=== PATIENT | female | born 1955 | race Caucasian/White ===

== ENCOUNTER 2021-07-23 07:52 | Inpatient (IN) ==
[2021-07-23] MEDS ORDERED: METOPROLOL TARTRATE 1 MG/ML VIAL IV STA ×2 (08:32→09:29)
[2021-07-23 08:42] LABS: Basophils # (auto) 0.01 K/uL (0-0.2); Basophils % (auto) 0.2 %; Eosinophils # (auto) 0.17 K/uL (0-0.5); Hematocrit (blood only) 43.9 % (37-47); Hemoglobin 15.2 g/dL (12.0-16.0); Immature Granulocytes # (auto) 0.01 K/uL (0.00-0.02); Immature Granulocytes % (auto) 0.2 %; Lymphocytes % (auto) 26.1 %; Mean Corpuscular Hemoglobin 28.7 pg (25-34); Mean Corpuscular Hgb Conc 34.6 g/dL (32-36); Mean Corpuscular Volume 82.8 fL (80-100); Mean Platelet Volume 10.8 fL (7.4-10.4); Monocytes # (auto) 0.37 K/uL (0.11-0.59); Monocytes % (auto) 6.4 %; Neutrophils # (auto) 3.69 K/uL (1.4-6.5); Neutrophils % (auto) 64.1 %; Platelet Count 270 K/uL (130-400); RDW Coefficient of Variation 13.1 % (11.5-14.5); RDW Standard Deviation 39.3 fL (36.4-46.3); White Blood Count 5.75 K/uL (4.8-10.8)
--- NOTE | 2021-07-23 08:42 | XRay Report ---
XR chest 1V portable CLINICAL HISTORY: Chest Pain COMPARISON STUDY: Chest radiograph December 16, 2018. FINDINGS: Lung volumes are normal. Lungs are clear. There is no pneumothorax or pleural effusion. Car diac size is normal. Mediastinal contours are normal. There is no evidence for pulmonary edema. Patie nt is mildly rotated. IMPRESSION: No acute cardiopulmonary findings. ACT 112: Negative or not required by law. Electronically signed by: Tani Miner M.D. 07/23/2021 8:41 AM
--- NOTE | 2021-07-23 08:45 | Emergency Department Note ---
History of Present Illness General Chief complaint: Anxiety Time Seen by Provider: 07/23/21 08:09 Source: patient and RN notes reviewed Mode of arrival: EMS Limitations: no limitations History of Present Illness Provider complaint: Dizziness, tachycardia 66 yo F Hx AFib on Eliquis therapy, HTN, anxiety on Zoloft presents for 2 hours of dizziness, tachycardia, bilateral arm tingling, and presyncopal sensation with noted HR 100-130 in ER. She reports that since 2018 she has had some heart palpitations, and around April of this year she was started on Eliquis for AFib after having Zio monitoring via Cardiology. She admits to increased stress in her life (her sister has stage 4 pancreatic cancer, and her housemate was diagnosed with COVID 19 in mid-June), and was started on Zoloft in March. Two days ago she states that she had an episode while seated where she started to feel lightheaded and passed out, hitting her head and arm off of the floor. She does not endorse any facial weakness or numbness, limb weakness, dysarthria, dysphagia. On review of [facility] notes, Zio monitor showed AFib especially during sleeping hours, with minimum HR of 48 bpm, 1 run of VTach (7 beats, max rate 135), and several runs of SVT with maximum HR of 279. Lexiscan performed on 06/12/21 showed no evidence of ischemia with EF >65%. Home Medications Medication Instructions Recorded Confirmed Type conjugated estrogens 0.625 mg/gram 0.25 applic VAGINAL WK 12/16/18 07/23/21 History vaginal cream (Premarin) loratadine 10 mg tablet (Claritin) 10 mg PO DAILY 12/16/18 07/23/21 History melatonin 5 mg chewable tablet 5 mg PO HS PRN 12/16/18 07/23/21 History apixaban 5 mg tablet (Eliquis) 5 mg PO BID 07/23/21 07/23/21 History sertraline 25 mg tablet 25 mg PO DAILY 07/23/21 07/23/21 History sotalol 80 mg tablet 40 mg PO BID 30 Days #30 tab 07/25/21 Rx Allergies Allergy/AdvReac Type Severity Reaction Status Date / Time No Known Allergies Allergy Verified 07/23/21 08:06 Past Med/Surg History Medical History (Updated 07/26/21 @ 08:36 by Toya Castaneda MD) Anxiety Atrial fibrillation Hyperlipidemia Postmenopausal atrophic vaginitis Seasonal allergies Surgical History H/O wisdom tooth extraction History of appendectomy Family History Father Myocardial infarction Fatal at age 62 Social History Smoking Status: Never smoker Hx Alcohol Use: Yes Alcohol type: wine Hx Substance Use: No Preferred Language: Zambian 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 Beliefs That Will Affect Care: None marital status: Current Living Situation: Spouse current occupational status: employed Feels Safe at Home: Yes and No Is there a partner from a previous relationship who is making you feel unsafe now?: No Assistive Devices: None Review of Systems All systems reviewed & are unremarkable except as noted in HPI & below Constitutional: no fever, no chills and no malaise Respiratory: no cough and no dyspnea Cardiovascular: + palpitations and + lightheadedness; no chest pain and no edema Gastrointestinal: no abdominal pain, no constipation and no diarrhea/loose stools Genitourinary (Female): no dysuria and no hematuria Neurologic: + paresthesia (bilateral arms) Psychiatric: + anxiety Physical Exam Vital Signs Vital Signs - 24 hr 07/23/21 08:01 07/23/21 08:06 07/23/21 08:30 Temperature Source Oral Pulse Rate 108 H 100 H 112 H Pulse Rate [Finger] Pulse Rate from SpO2 Sensor 90 113 H Pulse Rhythm Regular Pulse Strength Normal Respiratory Rate 16 22 29 H Respiratory Effort / Characteristics Non-Labored Spontaneous Respiratory Depth Normal Respiratory Pattern Regular Blood Pressure 154/100 H 154/100 H 136/102 H Blood Pressure [Left Arm] Blood Pressure Mean 118 118 113 Blood Pressure Mean [Left Arm] Blood Pressure Position Sitting Pulse Oximetry 99 100 97 Oxygen Delivery Method Room Air Room Air Room Air Sepsis Recent Fever Within 48 Hours No Sepsis New/Unexplained Change in Mental Status No Sepsis Action Taken by Nursing No Action Required 07/23/21 08:44 07/23/21 09:00 07/23/21 09:16 Temperature Source Pulse Rate 113 H 97 H Pulse Rate [Finger] Pulse Rate from SpO2 Sensor 99 H Pulse Rhythm Pulse Strength Respiratory Rate 30 H Respiratory Effort / Characteristics Respiratory Depth Respiratory Pattern Blood Pressure 136/102 H 144/90 H 119/81 Blood Pressure [Left Arm] Blood Pressure Mean 108 93 Blood Pressure Mean [Left Arm] Blood Pressure Position Pulse Oximetry 91 Oxygen Delivery Method Sepsis Recent Fever Within 48 Hours Sepsis New/Unexplained Change in Mental Status Sepsis Action Taken by Nursing 07/23/21 09:30 07/23/21 09:45 07/23/21 10:01 Temperature Source Pulse Rate 96 H 91 H 90 Pulse Rate [Finger] Pulse Rate from SpO2 Sensor 96 H 90 88 Pulse Rhythm Pulse Strength Respiratory Rate 16 23 25 H Respiratory Effort / Characteristics Respiratory Depth Respiratory Pattern Blood Pressure 129/101 H 127/81 142/97 H Blood Pressure [Left Arm] Blood Pressure Mean 110 96 112 Blood Pressure Mean [Left Arm] Blood Pressure Position Pulse Oximetry 91 96 98 Oxygen Delivery Method Sepsis Recent Fever Within 48 Hours Sepsis New/Unexplained Change in Mental Status Sepsis Action Taken by Nursing 07/23/21 10:15 07/23/21 10:30 07/23/21 10:45 Temperature Source Pulse Rate 99 H 103 H 91 H Pulse Rate [Finger] Pulse Rate from SpO2 Sensor 90 80 93 H Pulse Rhythm Pulse Strength Respiratory Rate 13 20 14 Respiratory Effort / Characteristics Respiratory Depth Respiratory Pattern Blood Pressure 122/94 127/84 130/88 Blood Pressure [Left Arm] Blood Pressure Mean 103 98 102 Blood Pressure Mean [Left Arm] Blood Pressure Position Pulse Oximetry 97 97 97 Oxygen Delivery Method Sepsis Recent Fever Within 48 Hours Sepsis New/Unexplained Change in Mental Status Sepsis Action Taken by Nursing 07/23/21 11:00 07/23/21 11:15 07/23/21 11:30 Temperature Source Pulse Rate 84 80 89 Pulse Rate [Finger] Pulse Rate from SpO2 Sensor 85 77 88 Pulse Rhythm Pulse Strength Respiratory Rate 12 18 20 Respiratory Effort / Characteristics Respiratory Depth Respiratory Pattern Blood Pressure 123/85 130/102 H 123/91 Blood Pressure [Left Arm] Blood Pressure Mean 97 111 101 Blood Pressure Mean [Left Arm] Blood Pressure Position Pulse Oximetry 97 97 98 Oxygen Delivery Method Room Air Sepsis Recent Fever Within 48 Hours Sepsis New/Unexplained Change in Mental Status Sepsis Action Taken by Nursing 07/23/21 11:45 07/23/21 11:53 Temperature Source Pulse Rate 89 Pulse Rate [Finger] 87 Pulse Rate from SpO2 Sensor 91 H Pulse Rhythm Pulse Strength Respiratory Rate 18 24 Respiratory Effort / Characteristics Respiratory Depth Respiratory Pattern Blood Pressure 148/98 H Blood Pressure [Left Arm] 148/98 H Blood Pressure Mean 114 Blood Pressure Mean [Left Arm] 114 Blood Pressure Position Pulse Oximetry 96 97 Oxygen Delivery Method Room Air Room Air Sepsis Recent Fever Within 48 Hours Sepsis New/Unexplained Change in Mental Status Sepsis Action Taken by Nursing see below Constitutional WD/WN, vitals as above Eyes PERRL, conjunctivae normal, anicteric sclerae ENMT external ear and nose normal, oropharynx normal Neck normal visual inspection Respiratory normal respiratory effort, lungs clear to auscultation Cardiovascular Rate/Rhythm: + irregularly irregular Heart Sounds: no murmur Gastrointestinal (Abdomen) normal bowel sounds, soft, nontender, no hepatosplenomegaly Musculoskeletal no cyanosis or clubbing, extremities motor strength 5/5 Skin no rashes, warm and dry Psychiatric Orientation: alert and oriented x 3 Affect: no anxious affect Course Administered Medications Discontinued Medications Apixaban (Apixaban 5 Mg Tablet) 5 mg PO BID NADEEM Stop: 08/22/21 20:59 Last Admin: 07/25/21 07:58 Dose: 5 mg Documented by: Potassium Chloride/Sodium Chloride (Normal Saline W/20 Meq Kcl) 20 meq in 1,000 mls @ 60 mls/hr IV .[id number] NADEEM Stop: 08/22/21 14:55 Last Admin: 07/24/21 10:18 Dose: Not Given Documented by: Magnesium Sulfate/Dextrose (Magnesium Sulfate / D5w) 1 gm in 100 mls @ 50 mls/hr IV Q2H NADEEM Stop: 07/23/21 20:44 Last Infusion: 07/23/21 21:50 Dose: Infused Documented by: Loratadine (Loratadine 10 Mg Tab) 10 mg PO DAILY NADEEM Stop: 08/23/21 08:59 Last Admin: 07/24/21 07:57 Dose: Not Given Documented by: Metoprolol Tartrate (Metoprolol Tartrate 1 Mg/Ml Vial) 5 mg IV NOW STA Stop: 07/23/21 08:33 Last Admin: 07/23/21 08:44 Dose: 5 mg Documented by: [id number] Metoprolol Tartrate (Metoprolol Tartrate 50 Mg Tab) 25 mg PO NOW STA Stop: 07/23/21 09:01 Last Admin: 07/23/21 09:59 Dose: 25 mg Documented by: [id number] Metoprolol Tartrate (Metoprolol Tartrate 1 Mg/Ml Vial) 5 mg IV NOW STA Stop: 07/23/21 09:30 Last Admin: 07/23/21 10:16 Dose: Not Given Documented by: [id number] Miscellaneous (Premarin Vaginal Cream: Order Awaiting Action) 1 ea N/A QS [facility] Stop: 08/22/21 15:59 Last Admin: 07/25/21 12:11 Dose: Not Given Documented by: Potassium Chloride (Potassium Chloride Crtab 20 Meq Tabcr) 40 meq PO NOW ONE Stop: 07/23/21 12:23 Last Admin: 07/23/21 13:43 Dose: 40 meq Documented by: Sertraline HCl (Sertraline Hcl 50 Mg Tablet) 25 mg PO DAILY [facility] Stop: 08/23/21 08:59 Last Admin: 07/25/21 07:58 Dose: 25 mg Documented by: Sotalol HCl (Sotalol Hcl 80 Mg Tab) 40 mg PO NOW ONE Stop: 07/23/21 12:22 Last Admin: 07/23/21 13:44 Dose: 40 mg Documented by: Sotalol HCl (Sotalol Hcl 80 Mg Tab) 80 mg PO BID [facility] Stop: 08/22/21 20:59 Last Admin: 07/25/21 07:57 Dose: 80 mg Documented by: Sotalol HCl (Sotalol Hcl 80 Mg Tab) 40 mg PO BID@0900,1600 [facility] Stop: 07/25/21 23:59 Last Admin: 07/25/21 16:12 Dose: 40 mg Documented by: Critical Care Time Critical Care Time: Yes Total Critical Care Time: 35 I have personally spent 35 minutes of critical care time in the direct management of this patient. This was a life threatening event. This 35 minutes is in excess of all separately billable procedures. Medical Decision Making Differential Diagnosis Premature contractions, electrolyte abnormality, cardiac dysrhythmia, thyroid dysfunction, pulmonary embolism, infection, gastrointestinal, as well as other pathologies. Medical Records Attestation: I reviewed the patient's medical records. Home Medications Current Medication List: was personally reviewed by me Laboratory Data Attestation: I reviewed the patient's lab results. Result diagrams: 07/24/21 06:07 07/25/21 07:05 Lab Results 07/23/21 07/23/21 07/23/21 Range/Units 08:05 08:05 08:05 WBC 5.75 (4.8-10.8) K/uL RBC 5.30 (4.2-5.4) M/uL Hgb 15.2 (12.0-16.0) g/dL Hct 43.9 (37-47) % MCV 82.8 (80-100) fL MCH 28.7 (25-34) pg MCHC 34.6 (32-36) g/dL RDW Std Deviation 39.3 (36.4-46.3) fL RDW Coeff of Zak 13.1 (11.5-14.5) % Plt Count 270 (130-400) K/uL MPV 10.8 H (7.4-10.4) fL Immature Gran % (Auto) 0.2 % Neut % (Auto) 64.1 % Lymph % (Auto) 26.1 % Stoddard % (Auto) 6.4 % Eos % (Auto) 3.0 % Baso % (Auto) 0.2 % Neut # (Auto) 3.69 (1.4-6.5) K/uL Lymph # (Auto) 1.50 (1.2-3.4) K/uL Stoddard # (Auto) 0.37 (0.11-0.59) K/uL Eos # (Auto) 0.17 (0-0.5) K/uL Baso # (Auto) 0.01 (0-0.2) K/uL Immature Gran # (Auto) 0.01 (0.00-0.02) K/uL APTT 30.2 (21.0-31.0) Seconds PTT Ratio 1.1 Sodium 144 (136-145) mmol/L Potassium 3.6 (3.5-5.1) mmol/L Chloride 111 H (98-107) mmol/L Carbon Dioxide 23 (21-32) mmol/L Anion Gap 10.0 (3-11) BUN 14 (7-18) mg/dl Creatinine 1.00 (0.6-1.2) mg/dl Est Cr Clr Drug Dosing 53.2 ml/min Est GFR ( Amer) 69.0 ml/min Est GFR (Non-Af Amer) 59.5 ml/min BUN/Creatinine Ratio 13.5 (10-20) Glucose 96 (70-99) mg/dl Calcium 9.2 (8.5-10.1) mg/dl Magnesium (1.8-2.4) mg/dl Total Bilirubin 1.0 (0.2-1) mg/dl AST 20 (15-37) U/L ALT 22 (12-78) U/L Alkaline Phosphatase 81 (45-117) U/L Troponin I < 0.015 (0-0.045) ng/ml Total Protein 6.9 (6.4-8.2) gm/dl Albumin 3.6 (3.4-5.0) gm/dl Globulin 3.3 (2.5-4.0) gm/dl Albumin/Globulin Ratio 1.1 (0.9-2) Lipase 145 (73-393) U/L COVID-19 Eval Order SARS-CoV-2 (PCR) (Negative) 07/23/21 07/23/21 07/23/21 Range/Units 08:05 10:00 10:00 WBC (4.8-10.8) K/uL RBC (4.2-5.4) M/uL Hgb (12.0-16.0) g/dL Hct (37-47) % MCV (80-100) fL MCH (25-34) pg MCHC (32-36) g/dL RDW Std Deviation (36.4-46.3) fL RDW Coeff of Zak (11.5-14.5) % Plt Count (130-400) K/uL MPV (7.4-10.4) fL Immature Gran % (Auto) % Neut % (Auto) % Lymph % (Auto) % [place]odd[place] % (Auto) % Eos % (Auto) % Baso % (Auto) % Neut # (Auto) (1.4-6.5) K/uL Lymph # (Auto) (1.2-3.4) K/uL Stoddard # (Auto) (0.11-0.59) K/uL Eos # (Auto) (0-0.5) K/uL Baso # (Auto) (0-0.2) K/uL Immature Gran # (Auto) (0.00-0.02) K/uL APTT (21.0-31.0) Seconds PTT Ratio Sodium (136-145) mmol/L Potassium (3.5-5.1) mmol/L Chloride (98-107) mmol/L Carbon Dioxide (21-32) mmol/L Anion Gap (3-11) BUN (7-18) mg/dl Creatinine (0.6-1.2) mg/dl Est Cr Clr Drug Dosing ml/min Est GFR ( Amer) ml/min Est GFR (Non-Af Amer) ml/min BUN/Creatinine Ratio (10-20) Glucose (70-99) mg/dl Calcium (8.5-10.1) mg/dl Magnesium 1.7 L (1.8-2.4) mg/dl Total Bilirubin (0.2-1) mg/dl AST (15-37) U/L ALT (12-78) U/L Alkaline Phosphatase (45-117) U/L Troponin I (0-0.045) ng/ml Total Protein (6.4-8.2) gm/dl Albumin (3.4-5.0) gm/dl Globulin (2.5-4.0) gm/dl Albumin/Globulin Ratio (0.9-2) Lipase (73-393) U/L COVID-19 Eval Order Covid19 at [facility] SARS-CoV-2 (PCR) NEGATIVE (Negative) Imaging Data Radiologist's Impression: Chest X-Ray 07/23/21 08:32 XR chest 1V portable CLINICAL HISTORY: Chest Pain COMPARISON STUDY: Chest radiograph December 16, 2018. FINDINGS: Lung volumes are normal. Lungs are clear. There is no pneumothorax or pleural effusion. Cardiac size is normal. Mediastinal contours are normal. There is no evidence for pulmonary edema. Patient is mildly rotated. IMPRESSION: No acute cardiopulmonary findings. ACT 112: Negative or not required by law. Electronically signed by: Tani Miner M.D. 07/23/2021 8:[address] 07/23/21 08:36 CT SCAN OF THE BRAIN WITHOUT IV CONTRAST CLINICAL HISTORY: Dizziness. Head injury. COMPARISON STUDY: No priors. TECHNIQUE: Unenhanced axial CT scan of the brain is performed from the vertex to the skull base. A dose lowering technique was utilized adhering to the principles of ALARA. CT DOSE: 537.48 mGy.cm FINDINGS: Brain parenchyma: The brain parenchyma is normal in appearance. There is no hemorrhage, mass effect, or evidence of acute territorial ischemia by CT criteria. Brooks-white matter differentiation is preserved. No extra-axial fluid collection is seen. Ventricles, sulci, cisterns: Normal in configuration. Intracranial vasculature: The visualized intracranial vasculature at the skull base is normal in appearance. Calvarium: Unremarkable. Sinuses and mastoids: The visualized paranasal sinuses are clear. The mastoid air cells are well pneumatized. Orbits: The bony orbits are grossly intact. IMPRESSION: There is no hemorrhage, mass effect, or evidence of acute territorial ischemia by CT criteria. ACT 112: Negative or not required by law. Electronically signed by: Chevy Gutiérrez M.D. 07/23/2021 9:19 AM ECG Data Attestation: I personally reviewed and interpreted this ECG as follows: Indication: + palpitations and + tachycardia Rate (beats per minute): 120 Rhythm: + atrial fibrillation ECG Intervals/blocks: + Prolonged QT (477) ECG [place]: + Normal ECG Findings: no PACs or no PVCs Blood Pressure Blood Pressure Findings: Elevated blood pressure Blood Pressure Disposition: Referred to patients primary care provider MDM Narrative This patient was evaluated and appeared to be in no significant distress. IV access was obtained and laboratory work was drawn. An order for cardiac monitoring was placed and the patient is noted to be in atrial fibrillation with rapid ventricular response at a rate of 120 bpm. Patient was medicated with IV metoprolol 5 mg x 2. Laboratory work reveals a normal troponin and potassium of 3.6. Chest x-ray was performed and reveals no significant acute abnormality. Head CT was performed due to dizziness and chronic anticoagulation and reveals no evidence of acute intracranial abnormality. Patient's case was discussed with cardiology as she is followed for atrial fibrillation. Patient was given oral metoprolol. Has stabilized but given the recurrent episodes will be evaluated by the hospitalist for further management. Cardiology will consult. Patient and were made aware of the plan and agreed. Impression & Plan Atrial fibrillation with rapid ventricular response Discharge Plan Visit Data Patient Disposition: Admitted As Inpatient Discharge Instructions Interventions: ED Discharge Assessment Last Done: 07/23/21 13:52 Resident Activity Tracking Resident Involvement: Resident Care Provided Care Provided: Adult ED
[2021-07-23 08:48] LABS: Partial Thromboplastin Ratio 1.1; Partial Thromboplastin Time 30.2 Seconds (21.0-31.0)
[2021-07-23 08:49] LABS: Alanine Aminotransferase 22 U/L (12-78); Albumin Level 3.6 gm/dl (3.4-5.0); Aspartate Aminotransferase 20 U/L (15-37); BUN Creatinine Ratio 13.5 (10-20); Blood Urea Nitrogen 14 mg/dl (7-18); Calcium 9.2 mg/dl (8.5-10.1); Carbon Dioxide 23 mmol/L (21-32); Chloride 111 mmol/L (98-107); Creatinine Clr Calc Pharmacy 53.2 ml/min; Est GFR (Non-African American) 59.5 ml/min; Glucose 96 mg/dl (70-99); Lipase 145 U/L (73-393); Potassium 3.6 mmol/L (3.5-5.1); Sodium 144 mmol/L (136-145)
[2021-07-23 08:54] LABS: Albumin Globulin Ratio 1.1 (0.9-2); Alkaline Phosphatase 81 U/L (45-117); Globulin 3.3 gm/dl (2.5-4.0); Total Protein 6.9 gm/dl (6.4-8.2); Troponin I < 0.015 ng/ml (0-0.045)
[2021-07-23] MEDS ORDERED: METOPROLOL TARTRATE 50 MG TAB PO STA (09:00)
--- NOTE | 2021-07-23 09:21 | CT Scan Report ---
CT SCAN OF THE BRAIN WITHOUT IV CONTRAST CLINICAL HISTORY: Dizziness. Head injury. COMPARISON STUDY: No priors. TECHNIQUE: Unenhanced axial CT scan of the brain is performed from the vertex to the skull base. A d ose lowering technique was utilized adhering to the principles of ALARA. CT DOSE: 537.48 mGy.cm FINDINGS: Brain parenchyma: The brain parenchyma is normal in appearance. There is no hemorrhage, mass effect, or evidence of acute territorial ischemia by CT criteria. Brooks-white matter differentiation is preser harjeet. No extra-axial fluid collection is seen. Ventricles, sulci, cisterns: Normal in configuration. Intracranial vasculature: The visualized intracranial vasculature at the skull base is normal in appe arance. Calvarium: Unremarkable. Sinuses and mastoids: The visualized paranasal sinuses are clear. The mastoid air cells are well pneu matized. Orbits: The bony orbits are grossly intact. IMPRESSION: There is no hemorrhage, mass effect, or evidence of acute territorial ischemia by CT yelenat jenny. ACT 112: Negative or not required by law. Electronically signed by: Chevy Gutiérrez M.D. 07/23/2021 9:19 AM
--- NOTE | 2021-07-23 12:19 | Cardiology Consultation ---
Date of Consultation July 23, 2021 Assessment & Plan (1) Atrial fibrillation with rapid ventricular response: (2) History of syncope: 66-year-old female presents with atrial fibrillation with rapid response, recent history of paroxysmal atrial fibrillation, paroxysmal atrial tachycardia. Patient symptomatic with events. In addition notes an episode of syncope question orthostasis in the last week's time. No overt arrhythmias observed at that time with patient checking with mobile EKG device This morning she awakened with atrial fibrillation and now is slowed in the ER with oral and IV metoprolol. Recent evaluations include negative stress nuclear imaging and normal echocardiogram. No evidence of QT prolongation on EKG Recommendations: Discussed atrial fibrillation in detail with patient and . Patient has been appropriately anticoagulated for approximately 3 mon ths. We will plan on supplementing potassium today, discontinuing metoprolol beginning sotalol load in hospital with anticipated telemetry 4872 hours serial EKGs If no spontaneous conversion consider synchronized electrical cardioversion History of Present Illness Reason for Consultation: Atrial fibrillation with rapid response Requesting Physician: Dr. Castaneda Attending Physician: Dr Kwon History of Present Illness Patient is a 66-year-old female with ongoing cardiac issues which include 1. Paroxysmal atrial fibrillation/paroxysmal atrial tachycardia anticoagulated with Eliquis since April 2021 2. Hypertension 3. Stress/anxiety Patient presents this admission noting approximately 6:00 this morning having developed sensations of tachypalpitations. Patient uses a home environmental monitoring specialist which demonstrated atrial fibrillation with rapid response. History is notable for an episode of syncope approximately 4 days ago. She notes rising from a sitting position in a chair and slumped to the floor with brief loss of consciousness. No noted arrhythmias on monitor check. Patient denies fevers chills or unexplained infections. She has not received a Covid vaccination and recently tested positive for Covid but quarantined Is under a great deal of emotional stress per patient with poor p.o. intake and approximately 10 pound weight loss. No overt bleeding. No prior history of TIA or stroke. Has been taking medications including Eliquis faithfully. Patient has undergone extensive cardiac evaluation with normal echocardiogram and normal stress nuclear testing. Allergies Allergy/AdvReac Type Severity Reaction Status Date / Time No Known Allergies Allergy Verified 07/23/21 08:06 Home Medications Medication Instructions Recorded Confirmed Type conjugated estrogens 0.625 mg/gram 0.25 applic VAGINAL WK 12/16/18 07/23/21 History vaginal cream (Premarin) loratadine 10 mg tablet (Claritin) 10 mg PO DAILY 12/16/18 07/23/21 History melatonin 5 mg chewable tablet 5 mg PO HS PRN 12/16/18 07/23/21 History apixaban 5 mg tablet (Eliquis) 5 mg PO BID 07/23/21 07/23/21 History metoprolol tartrate 25 mg tablet 25 mg PO BID 07/23/21 07/23/21 History sertraline 25 mg tablet 25 mg PO DAILY 07/23/21 07/23/21 History Patient History Medical History (Updated 07/23/21 @ 12:31 by Alberto Erwin MD) Anxiety Atrial fibrillation Hyperlipidemia Postmenopausal atrophic vaginitis Seasonal allergies Surgical History H/O wisdom tooth extraction History of appendectomy Family History Father Myocardial infarction Fatal at age 62 Social History Smoking Status: Never smoker Hx Alcohol Use: No Hx Substance Use: No Preferred Language: Sinhala Communication Ability: Effective Beliefs That Will Affect Care: None marital status: Current Living Situation: Spouse current occupational status: employed Feels Safe at Home: Yes Assistive Devices: None Review of Systems Review of Systems: All systems reviewed & are unremarkable except as noted in HPI & below Physical Exam Constitutional: + thin; no acute distress Eyes: PERRL, conjunctivae normal, anicteric sclerae ENMT: external ear and nose normal, oropharynx normal Neck: trachea midline, no thyromegaly Respiratory: normal respiratory effort, lungs clear to auscultation Cardiovascular: Rate/Rhythm: + irregularly irregular Heart Sounds: normal S1 and normal S2; no gallop and no murmur Palpation: normal PMI Vessels: normal carotid upstroke and radial pulses present; no JVD and no carotid bruit Extremities: no edema Gastrointestinal (Abdomen): normal bowel sounds, soft, nontender, no hepatosplenomegaly Musculoskeletal: no cyanosis or clubbing, extremities motor strength 5/5 Skin: no rashes, warm and dry Neurologic: PERRL, EOMI, accommodation nl, no face palsy, no dysarthria Psychiatric: A+Ox3, euthymic affect Results & Data ([facility]) Vital Signs (Past 12 Hours) Vital Signs Temp Pulse Pulse Resp BP BP Pulse Ox 07/23/21 12:00 36.7 C 87 18 126/81 97 07/23/21 11:53 87 24 148/98 H 97 07/23/21 11:45 89 18 148/98 H 96 07/23/21 11:30 89 20 123/91 98 07/23/21 11:15 80 18 130/102 H 97 07/23/21 11:00 84 12 123/85 97 07/23/21 10:45 91 H 14 130/88 97 07/23/21 10:30 103 H 20 127/84 97 07/23/21 10:15 99 H 13 122/94 97 07/23/21 10:01 90 25 H 142/97 H 98 07/23/21 09:45 91 H 23 127/81 96 07/23/21 09:30 96 H 16 129/101 H 91 07/23/21 09:16 97 H 30 H 119/81 91 07/23/21 09:00 144/90 H 07/23/21 08:44 113 H 136/102 H 07/23/21 08:30 112 H 29 H 136/102 H 97 07/23/21 08:06 100 H 22 154/100 H 100 07/23/21 08:01 108 H 16 154/100 H 99 Laboratory Results Laboratory Results - last 24 hr 07/23/21 07/23/21 07/23/21 08:05 08:05 08:05 WBC 5.75 RBC 5.30 Hgb 15.2 Hct 43.9 MCV 82.8 MCH 28.7 MCHC 34.6 RDW Std Deviation 39.3 RDW Coeff of Zak 13.1 Plt Count 270 MPV 10.8 H Immature Gran % (Auto) 0.2 Neut % (Auto) 64.1 Lymph % (Auto) 26.1 Sebastian % (Auto) 6.4 Eos % (Auto) 3.0 Baso % (Auto) 0.2 Neut # (Auto) 3.69 Lymph # (Auto) 1.50 Sebastian # (Auto) 0.37 Eos # (Auto) 0.17 Baso # (Auto) 0.01 Immature Gran # (Auto) 0.01 APTT 30.2 PTT Ratio 1.1 Sodium 144 Potassium 3.6 Chloride 111 H Carbon Dioxide 23 Anion Gap 10.0 BUN 14 Creatinine 1.00 Est Cr Clr Drug Dosing 53.2 Est GFR ( Amer) 69.0 Est GFR (Non-Af Amer) 59.5 BUN/Creatinine Ratio 13.5 Glucose 96 Calcium 9.2 Total Bilirubin 1.0 AST 20 ALT 22 Alkaline Phosphatase 81 Troponin I < 0.015 Total Protein 6.9 Albumin 3.6 Globulin 3.3 Albumin/Globulin Ratio 1.1 Lipase 145 COVID-19 Eval Order SARS-CoV-2 (PCR) 07/23/21 07/23/21 10:00 10:00 WBC RBC Hgb Hct MCV MCH MCHC RDW Std Deviation RDW Coeff of Zak Plt Count MPV Immature Gran % (Auto) Neut % (Auto) Lymph % (Auto) Sebastian % (Auto) Eos % (Auto) Baso % (Auto) Neut # (Auto) Lymph # (Auto) Sebastian # (Auto) Eos # (Auto) Baso # (Auto) Immature Gran # (Auto) APTT PTT Ratio Sodium Potassium Chloride Carbon Dioxide Anion Gap BUN Creatinine Est Cr Clr Drug Dosing Est GFR ( Amer) Est GFR (Non-Af Amer) BUN/Creatinine Ratio Glucose Calcium Total Bilirubin AST ALT Alkaline Phosphatase Troponin I Total Protein Albumin Globulin Albumin/Globulin Ratio Lipase COVID-19 Eval Order Covid19 at [facility] SARS-CoV-2 (PCR) NEGATIVE
[2021-07-23] MEDS ORDERED: SOTALOL HCL 80 MG TAB PO ONE (12:21)
[2021-07-23] MEDS ORDERED: POTASSIUM CHLORIDE CRTAB 20 MEQ TABCR PO ONE (12:22)
[2021-07-23] MEDS ORDERED: ACETAMINOPHEN 325 MG TAB PO PRN (14:56)
[2021-07-23] MEDS ORDERED: PREMARIN VAG CRM 14 APPLN/30 GM TUBE PV SCH (14:56)
[2021-07-23] MEDS ORDERED: MELATONIN 3 MG TAB PO PRN (15:08)
--- NOTE | 2021-07-23 16:31 | History & Physical Report ---
Date of Service July 23, 2021 Assessment & Plan (1) Atrial fibrillation with rapid ventricular response: (2) History of syncope: Plan: 66-year-old female with history of possible atrial fibrillation on Eliquis, anxiety, presenting with episodes of dizziness and a syncopal event last week. ATRIAL FIBRILLATION IN RVR SYNCOPE, LIKELY SECONDARY TO ABOVE HISTORY OF PAROXYSMAL ATRIAL FIBRILLATION Evaluated by nurse aide evaluator Dr. Erwin Transitioning from metoprolol to sotalol 80 mg p.o. twice daily Continue usual Eliquis twice daily Monitor EKGs Gentle IV fluids HEAD TRAUMA FROM SYNCOPE CT head: No acute process Denies any headache or neurologic symptoms COVID EXPOSURE Patient's diagnosed with Covid July 04, 2021 Has recovered since Initial Covid screen negative Repeat Covid test tomorrow ANXIETY Brought on by illness in her family On Zoloft Stable Follow-up with PCP DVT prophylaxis On Eliquis Disposition Anticipate discharge to home with family when medically stable Follow-up with PCP Follow-up with nurse aide evaluator next plan of care discussed with patient in detail and at length all questions answered She is understanding, agreeable, comfortable with the plan of care Admission and Anticipated Discharge Date Admission Date: July 23, 2021 History of Present Illness Chief Complaint: 66-year-old female with history of paroxysmal atrial fibrillation on Eliquis, anxiety, presenting with persistent episodes of dizziness and syncopal episode last week. Patient has been follow-up with [facility] cardiology clinic with diagnosis of proximal atrial fibrillation by Zio patch monitor last March 2021. She has been on metoprolol 25 mg p.o. twice daily and Eliquis 5 mg p.o. twice daily since that time. Patient reports episodes of intermittent dizziness and palpitations. Last Friday, patient had a syncopal event with resultant head trauma, and bruising on her right upper arm and bilateral knees. At the ER, patient was noted to have heart rates in the 110-100 30s. She was given IV metoprolol with improvement of heart rate in the 80s to 90s. She was started on sotalol 80 mg p.o. twice daily during admission after being evaluated by nurse aide evaluator Dr. Erwin. On exam, patient is sitting up in bed, comfortable, not in distress, in good spirits. Denies active chest pain, shortness of breath or palpitations, dizziness, nausea, abdominal pain. No other symptoms She is already on sinus rhythm, heart rate in the 80s by cafeteria monitor. Primary Care Provider: Sonya Sanon DO Allergies Allergy/AdvReac Type Severity Reaction Status Date / Time No Known Allergies Allergy Verified 07/23/21 08:06 Home Medications Medication Instructions Recorded Confirmed Type conjugated estrogens 0.625 mg/gram 0.25 applic VAGINAL WK 12/16/18 07/23/21 History vaginal cream (Premarin) loratadine 10 mg tablet (Claritin) 10 mg PO DAILY 12/16/18 07/23/21 History melatonin 5 mg chewable tablet 5 mg PO HS PRN 12/16/18 07/23/21 History apixaban 5 mg tablet (Eliquis) 5 mg PO BID 07/23/21 07/23/21 History metoprolol tartrate 25 mg tablet 25 mg PO BID 07/23/21 07/23/21 History sertraline 25 mg tablet 25 mg PO DAILY 07/23/21 07/23/21 History Past Med/Surg History Medical History (Updated 07/23/21 @ 12:31 by Alberto Erwin MD) Anxiety Atrial fibrillation Hyperlipidemia Postmenopausal atrophic vaginitis Seasonal allergies Surgical History H/O wisdom tooth extraction History of appendectomy Family History Father Myocardial infarction Fatal at age 62 Social History Smoking Status: Never smoker Hx Alcohol Use: Yes Alcohol type: wine Hx Substance Use: No Preferred Language: Telugu Communication Ability: Effective Branner Machine Tender Required: No Beliefs That Will Affect Care: None marital status: Current Living Situation: Spouse current occupational status: employed Other Information That Helps Us Care for You: No Feels Safe at Home: Yes and No Is there a partner from a previous relationship who is making you feel unsafe now?: No Any Concerns about Your Family Situation: No Safety Concerns: Feels Safe At This Time Assistive Devices: Glasses Review of Systems Review of Systems: all noted and negative except for above Physical Exam Physical Exam: General- oriented x 3, not in distress, speaks in sentences with no effort or accessory muscle use Head- atraumatic Eyes- PERRL, EOMI, anicteric ENT- oropharynx clear Neck- supple, no JVD, no adenopathy, no thyromegaly; carotids +2/2, no bruits appreciated Lungs- clear to auscultation bilaterally, no rales/wheezes Heart- normal rate, regular rhythm; no murmur, no gallop, no rub appreciated Abdomen- normal bowel sounds, nondistended, soft, nontender, no masses or hepatosplenomegaly Extremities- no pretibial edema, no calf tenderness; peripheral pulses intact Right forearm: Positive area of bruising on the ventral aspect Bilateral knees: Small area of bruising inferior to the knee Neuro- alert, oriented x 3; CN 2-12 grossly intact; motor 5/5 bilaterally;sensation 100% on all extremities; no other gross focal neurologic deficits Skin- warm & dry Results & Data Results & Data ([facility]) Vital Signs (Past 12 Hours) Vital Signs Temp Pulse Pulse Resp BP BP Pulse Ox 07/23/21 14:57 36.8 C 72 20 127/80 98 07/23/21 13:45 67 20 162/95 H 96 07/23/21 13:30 60 13 131/80 96 07/23/21 13:16 66 20 147/88 H 98 07/23/21 13:01 73 25 H 149/81 H 97 07/23/21 12:45 63 14 123/85 97 07/23/21 12:30 56 L 20 123/86 98 07/23/21 12:15 59 L 14 122/91 95 07/23/21 12:00 36.7 C 87 18 126/81 97 07/23/21 11:53 87 24 148/98 H 97 07/23/21 11:45 89 18 148/98 H 96 07/23/21 11:30 89 20 123/91 98 07/23/21 11:15 80 18 130/102 H 97 07/23/21 11:00 84 12 123/85 97 07/23/21 10:45 91 H 14 130/88 97 07/23/21 10:30 103 H 20 127/84 97 07/23/21 10:15 99 H 13 122/94 97 07/23/21 10:01 90 25 H 142/97 H 98 07/23/21 09:45 91 H 23 127/81 96 07/23/21 09:30 96 H 16 129/101 H 91 07/23/21 09:16 97 H 30 H 119/81 91 07/23/21 09:00 144/90 H 07/23/21 08:44 113 H 136/102 H 07/23/21 08:30 112 H 29 H 136/102 H 97 07/23/21 08:06 100 H 22 154/100 H 100 07/23/21 08:01 108 H 16 154/100 H 99 all noted and reviewed including below Code Status & VTE Plan VTE Prophylaxis Plan VTE Prophylaxis will be ordered: Yes
[2021-07-23] MEDS: NSS + 20MEQ KCL 20 MEQ/1,000 ML BAG IV SCH (17:13)
[2021-07-23] MEDS: MAGNESIUM SULFATE / D5W 1 GM/100 ML BAG IV SCH ×2 (17:14→19:44)
[2021-07-23] MEDS: SOTALOL HCL 80 MG TAB PO SCH (19:48)
[2021-07-23] MEDS: APIXABAN 5 MG TABLET PO SCH (19:48)
[2021-07-23] MEDS ORDERED: METOPROLOL TARTRATE 25 MG TAB PO SCH (21:00)
[2021-07-24 06:34] LABS: Basophils # (auto) 0.02 K/uL (0-0.2); Basophils % (auto) 0.3 %; Eosinophils # (auto) 0.22 K/uL (0-0.5); Eosinophils % (auto) 3.8 %; Hematocrit (blood only) 41.3 % (37-47); Immature Granulocytes # (auto) 0.02 K/uL (0.00-0.02); Immature Granulocytes % (auto) 0.3 %; Lymphocytes # (auto) 1.48 K/uL (1.2-3.4); Lymphocytes % (auto) 25.3 %; Mean Corpuscular Hemoglobin 28.6 pg (25-34); Mean Corpuscular Hgb Conc 33.9 g/dL (32-36); Mean Corpuscular Volume 84.3 fL (80-100); Mean Platelet Volume 10.2 fL (7.4-10.4); Monocytes # (auto) 0.59 K/uL (0.11-0.59); Monocytes % (auto) 10.1 %; Neutrophils # (auto) 3.53 K/uL (1.4-6.5); Neutrophils % (auto) 60.2 %; Platelet Count 245 K/uL (130-400); RDW Coefficient of Variation 13.3 % (11.5-14.5); RDW Standard Deviation 40.2 fL (36.4-46.3); White Blood Count 5.86 K/uL (4.8-10.8)
[2021-07-24 07:16] LABS: BUN Creatinine Ratio 16.9 (10-20); Calcium 8.6 mg/dl (8.5-10.1); Creatinine Clr Calc Pharmacy 64.1 ml/min; Est GFR (African American) 86.4 ml/min; Est GFR (Non-African American) 74.5 ml/min; Magnesium 2.4 mg/dl (1.8-2.4); Potassium 4.3 mmol/L (3.5-5.1)
[2021-07-24] MEDS: APIXABAN 5 MG TABLET PO SCH ×2 (07:52→21:16)
[2021-07-24] MEDS: SOTALOL HCL 80 MG TAB PO SCH ×2 (07:53→21:16)
[2021-07-24] MEDS: SERTRALINE HCL 50 MG TABLET PO SCH (07:53)
--- NOTE | 2021-07-24 08:09 | Electrocardiogram Report ---
Test Reason : Blood Pressure : / mmHG Vent. Rate : 120 BPM Atrial Rate : 258 BPM P-R Int : 000 ms QRS Dur : 080 ms QT Int : 338 ms P-R-T Axes : 000 065 -03 degrees QTc Int : 477 ms Atrial fibrillation with rapid ventricular response Abnormal ECG When compared with ECG of 17-DEC-2018 06:11, Atrial fibrillation has replaced Sinus rhythm Vent. rate has increased BY 49 BPM Confirmed by Arnulfo Dalal ([id number]) on 07/24/2021 8:09:09 AM Referred By: REFERRED SELF Confirmed By:Arnulfo Dalal
--- NOTE | 2021-07-24 08:11 | Electrocardiogram Report ---
Test Reason : Blood Pressure : / mmHG Vent. Rate : 164 BPM Atrial Rate : 174 BPM P-R Int : 000 ms QRS Dur : 072 ms QT Int : 270 ms P-R-T Axes : 000 047 037 degrees QTc Int : 445 ms Atrial fibrillation with rapid ventricular response Abnormal ECG When compared with ECG of 23-JUL-2021 07:58, HR has increased by 44 bpm Confirmed by Arnulfo Dalal ([id number]) on 07/24/2021 8:10:29 AM Referred By: REFERRED SELF Confirmed By:Arnlufo Dalal
--- NOTE | 2021-07-24 08:31 | Electrocardiogram Report ---
Test Reason : Blood Pressure : / mmHG Vent. Rate : 063 BPM Atrial Rate : 063 BPM P-R Int : 126 ms QRS Dur : 078 ms QT Int : 394 ms P-R-T Axes : 093 080 023 degrees QTc Int : 403 ms Normal sinus rhythm Anterior ST elevation, most consistent with repolarization variant Borderline ECG When compared with ECG of 23-JUL-2021 09:19, Sinus rhythm has replaced Atrial fibrillation Vent. rate has decreased BY 101 BPM Confirmed by Arnulfo Dalal ([id number]) on 07/24/2021 8:30:50 AM Referred By: REFERRED SELF Confirmed By:Arnulfo Dalal
[2021-07-24] MEDS ORDERED: LORATADINE 10 MG TAB PO SCH (09:00)
[2021-07-24] MEDS: NSS + 20MEQ KCL 20 MEQ/1,000 ML BAG IV SCH (10:18)
--- NOTE | 2021-07-24 10:25 | Cardiology Progress Note ---
Date of Service July 24, 2021 Assessment & Plan (1) Atrial fibrillation with rapid ventricular response: (2) History of syncope: Plan: 66-year-old female presents with atrial fibrillation with rapid response, recent history of paroxysmal atrial fibrillation, paroxysmal atrial tachycardia. Patient symptomatic with events. In addition notes an episode of syncope question orthostasis in the last week's time. No overt arrhythmias observed at that time with patient checking with mobile EKG device Day of admission she awakened with atrial fibrillation, slowed in the ER with oral and IV metoprolol. Recent evaluations include negative stress nuclear imaging and normal echocardiogram. No evidence of QT prolongation on EKG Recommendations: Patient was begun on sotalol on admission and subsequently converted to sinus rhythm. No evidence of QT prolongation. We will continue sotalol maintaining telemetry at least an additional 24 to 36-hour. Continue chronic anticoagulation with apixaban. Discontinue IV fluids Discussed sotalol use at length Admission and Anticipated Discharge Date Admission Date: July 23, 2021 Subjective Patient was seen and examined, chart, medications, telemetry and EKGs reviewed Patient feels well this morning. Has converted to sinus rhythm yesterday afternoon no further arrhythmias. EKGs without QT prolongation and tolerating medical changes. No fevers chills or cough Review of Systems Review of Systems: All systems reviewed & are unremarkable except as noted in Subjective Physical Exam Constitutional: + thin; no acute distress Eyes: PERRL, conjunctivae normal, anicteric sclerae ENMT: external ear and nose normal, oropharynx normal Neck: trachea midline, no thyromegaly Respiratory: normal respiratory effort, lungs clear to auscultation Cardiovascular: Rate/Rhythm: regular rate and regular rhythm Heart Sounds: normal S1 and normal S2; no gallop and no murmur Palpation: normal PMI Vessels: normal carotid upstroke and radial pulses present; no JVD and no carotid bruit Extremities: no edema Gastrointestinal (Abdomen): normal bowel sounds, soft, nontender, no hepatosplenomegaly Musculoskeletal: no cyanosis or clubbing, extremities motor strength 5/5 Skin: no rashes, warm and dry Neurologic: PERRL, EOMI, accommodation nl, no face palsy, no dysarthria Psychiatric: A+Ox3, euthymic affect Results & Data ([facility]) Vital Signs (Past 12 Hours) Vital Signs Temp Pulse Pulse Resp BP Pulse Ox 07/24/21 08:00 52 L 07/24/21 07:30 36.6 C 57 L 18 150/90 H 99 07/24/21 04:42 36.7 C 68 16 127/76 99 07/23/21 23:55 36.6 C 56 L 18 124/81 97 Laboratory Results Laboratory Results - last 24 hr 07/23/21 07/23/21 07/24/21 08:05 10:00 06:07 WBC 5.86 RBC 4.90 Hgb 14.0 Hct 41.3 MCV 84.3 MCH 28.6 MCHC 33.9 RDW Std Deviation 40.2 RDW Coeff of Zak 13.3 Plt Count 245 MPV 10.2 Immature Gran % (Auto) 0.3 Neut % (Auto) 60.2 Lymph % (Auto) 25.3 Bleckley % (Auto) 10.1 Eos % (Auto) 3.8 Baso % (Auto) 0.3 Neut # (Auto) 3.53 Lymph # (Auto) 1.48 Bleckley # (Auto) 0.59 Eos # (Auto) 0.22 Baso # (Auto) 0.02 Immature Gran # (Auto) 0.02 Sodium Potassium Chloride Carbon Dioxide Anion Gap BUN Creatinine Est Cr Clr Drug Dosing Est GFR ( Amer) Est GFR (Non-Af Amer) BUN/Creatinine Ratio Glucose Calcium Magnesium 1.7 L COVID-19 Eval Order SARS-CoV-2 (PCR) NEGATIVE 07/24/21 07/24/21 07/24/21 06:07 09:10 09:10 WBC RBC Hgb Hct MCV MCH MCHC RDW Std Deviation RDW Coeff of Zak Plt Count MPV Immature Gran % (Auto) Neut % (Auto) Lymph % (Auto) Bleck[place] % (Auto) Eos % (Auto) Baso % (Auto) Neut # (Auto) Lymph # (Auto) Bleckley # (Auto) Eos # (Auto) Baso # (Auto) Immature Gran # (Auto) Sodium 143 Potassium 4.3 D Chloride 112 H Carbon Dioxide 27 Anion Gap 4.0 BUN 14 Creatinine 0.83 Est Cr Clr Drug Dosing 64.1 Est GFR ( Amer) 86.4 Est GFR (Non-Af Amer) 74.5 BUN/Creatinine Ratio 16.9 Glucose 83 Calcium 8.6 Magnesium 2.4 COVID-19 Eval Order Covid19 at [facility] SARS-CoV-2 (PCR) NEGATIVE ECG Additional Comments: 24-JUL-2021 09:08:09 [facility]-MEDICU ROUTINE RETRIEVAL Sinus bradycardia with Premature atrial complexes Abnormal QRS-T angle, consider primary T wave abnormality. QT corrected 412 abnormal ECG When compared with ECG of 23-JUL-2021 16:28, Premature atrial complexes are now Present
--- NOTE | 2021-07-24 12:24 | Electrocardiogram Report ---
Test Reason : Blood Pressure : / mmHG Vent. Rate : 063 BPM Atrial Rate : 063 BPM P-R Int : 126 ms QRS Dur : 078 ms QT Int : 394 ms P-R-T Axes : 093 080 023 degrees QTc Int : 403 ms Normal sinus rhythm Anterior ST elevation, most consistent with repolarization variant Borderline ECG When compared with ECG of 23-JUL-2021 09:19, Sinus rhythm has replaced Atrial fibrillation Vent. rate has decreased BY 101 BPM Confirmed by Arnulfo Dalal ([id number]) on 07/24/2021 8:30:50 AM Also confirmed by Arnulfo Dalal ([id number]), movie editor Ezio Wisdom ([id number]) on 07/24/2021 12:23:41 PM Referred By: REFERRED SELF Confirmed By:Arnulfo Dalal
[2021-07-24] MEDS ORDERED: ALUMINUM/MAGNESIUM SUSP 30 ML UDC PO PRN (15:08)
--- NOTE | 2021-07-24 15:08 | Hospitalist Progress Note ---
Date of Service July 24, 2021 Assessment & Plan (1) Atrial fibrillation with rapid ventricular response: (2) History of syncope: Plan: 66-year-old female with history of possible atrial fibrillation on Eliquis, anxiety, presenting with episodes of dizziness and a syncopal event last week. ATRIAL FIBRILLATION IN RVR SYNCOPE, LIKELY SECONDARY TO ABOVE HISTORY OF PAROXYSMAL ATRIAL FIBRILLATION Evaluated by dental laboratory technology teacher Dr. Erwin Transitioned from metoprolol to sotalol 80 mg p.o. twice daily day 2 Remains in sinus rhythm Continue usual Eliquis twice daily Monitor EKGs, QT intervals DYSPEPSIA Trial of Maalox HEAD TRAUMA FROM SYNCOPE CT head: No acute process Denies any headache or neurologic symptoms COVID EXPOSURE Patient's diagnosed with Covid July 04, 2021 Has recovered since Initial Covid screen and second Covid screen negative Asymptomatic from Covid standpoint ANXIETY Brought on by illness in her family On Zoloft Stable Follow-up with PCP DVT prophylaxis On Eliquis Disposition Anticipate discharge to home with family when medically stable Follow-up with PCP Follow-up with dental laboratory technology teacher next plan of care discussed with patient in detail and at length all questions answered She is understanding, agreeable, comfortable with the plan of care Admission and Anticipated Discharge Date Admission Date: July 23, 2021 Subjective Follow-up for Zoila winston with RVR, dizziness, syncope, etc. Seen resting in bed, comfortable, not in distress, in good spirit States that she feels improved today No chest pain, palpitations, dizziness Reports dyspepsia, epigastric region mild discomfort No nausea No other symptoms Review of Systems Review of Systems: all noted and negative except for above Physical Exam Physical Exam: General- oriented x 3, not in distress, speaks in sentences with no effort or accessory muscle use Eyes- anicteric Neck- no JVD Lungs- clear BS bilaterally, no crackles, no wheezing Heart- normal rate, regular rhythm; no murmurs Abdomen- normal bowel sounds, nondistended, soft, nontender Extremities- no pretibial edema, no calf tenderness Neuro- alert, oriented x 3; no gross focal neurologic deficits Skin- warm & dry Results & Data Results & Data ([facility]) Vital Signs (Past 12 Hours) Vital Signs Temp Pulse Pulse Resp BP Pulse Ox 07/24/21 11:29 36.8 C 57 L 17 124/85 98 07/24/21 08:00 52 L 07/24/21 07:30 36.6 C 57 L 18 150/90 H 99 07/24/21 04:42 36.7 C 68 16 127/76 99 all noted and reviewed including below
[2021-07-25] MEDS: SOTALOL HCL 80 MG TAB PO SCH (07:57)
[2021-07-25] MEDS: APIXABAN 5 MG TABLET PO SCH (07:58)
[2021-07-25] MEDS: SERTRALINE HCL 50 MG TABLET PO SCH (07:58)
[2021-07-25 08:27] LABS: BUN Creatinine Ratio 19.5 (10-20); Calcium 9.3 mg/dl (8.5-10.1); Creatinine Clr Calc Pharmacy 60.5 ml/min; Est GFR (African American) 80.5 ml/min; Est GFR (Non-African American) 69.4 ml/min; Potassium 4.1 mmol/L (3.5-5.1)
--- NOTE | 2021-07-25 11:05 | Cardiology Progress Note ---
Date of Service July 25, 2021 Assessment & Plan (1) Atrial fibrillation with rapid ventricular response: (2) History of syncope: Plan: 66-year-old female presents with atrial fibrillation with rapid response, recent history of paroxysmal atrial fibrillation, paroxysmal atrial tachycardia. Patient symptomatic with events. In addition notes an episode of syncope question orthostasis in the last week's time. No overt arrhythmias observed at that time with patient checking with mobile EKG device Day of admission she awakened with atrial fibrillation, slowed in the ER with oral and IV metoprolol. Recent evaluations include negative stress nuclear imaging and normal echocardiogram. No evidence of QT prolongation on EKG No further arrhythmias since admission. EKGs without QT prolongation blood pressures with mild lability Recommendations: Patient was begun on sotalol on admission and subsequently converted to sinus rhythm. Given relative resting bradycardia, slight body habitus will reduce sotalol to 40 mg twice per day Give p.m. dose of sotalol today at 1600. If no significant QT prolongation on EKG at 1700 may be discharged home this evening Blood pressures will need to be followed closely as an outpatient with low threshold for adding low-dose DAWSON inhibitor Patient has scheduled cardiology appointment on 08/06/2021 Admission and Anticipated Discharge Date Admission Date: July 23, 2021 Subjective Patient seen and medications, telemetry reviewed Patient without complaint. Ambulatory in room without difficulty. Tolerating sotalol well without side effect. No arrhythmias on telemetry EKG sinus bradycardia with QT corrected of 443 Review of Systems Review of Systems: All systems reviewed & are unremarkable except as noted in Subjective Physical Exam Constitutional: WD/WN, vitals as above no acute distress Results & Data ([facility]) Vital Signs (Past 12 Hours) Vital Signs Temp Pulse Pulse Resp BP Pulse Ox Pulse Ox 07/25/21 08:15 37.0 C 53 L 18 132/88 99 07/25/21 08:00 50 L 99 07/25/21 03:37 36.8 C 55 L 16 144/77 H 98 07/24/21 23:12 52 L Laboratory Results Laboratory Results - last 24 hr 07/25/21 07:05 Sodium 142 Potassium 4.1 Chloride 110 H Carbon Dioxide 26 Anion Gap 6.0 BUN 17 Creatinine 0.88 Est Cr Clr Drug Dosing 60.5 Est GFR ( Amer) 80.5 Est GFR (Non-Af Amer) 69.4 BUN/Creatinine Ratio 19.5 Glucose 84 Calcium 9.3
[2021-07-25] MEDS ORDERED: SOTALOL HCL 80 MG TAB PO SCH (16:00)
--- NOTE | 2021-07-25 16:17 | Discharge Summary ---
Date of Service July 25, 2021 Discharge Data Allergies Allergy/AdvReac Type Severity Reaction Status Date / Time No Known Allergies Allergy Verified 07/23/21 08:06 Consultations 07/23/21 09:49 ED Decision to Admit Stat 07/23/21 14:56 Consult Cardiology Routine Ordered Studies 07/23/21 08:36 CT head/brain wo con Stat Hospital Course (1) Atrial fibrillation with rapid ventricular response: (2) History of syncope: 66-year-old female with history of possible atrial fibrillation on Eliquis, anxiety, presenting with episodes of dizziness and a syncopal event last week. ATRIAL FIBRILLATION IN RVR SYNCOPE, LIKELY SECONDARY TO ABOVE HISTORY OF PAROXYSMAL ATRIAL FIBRILLATION Evaluated by public area attendant Dr. Erwin Transitioned from metoprolol to sotalol 80 mg p.o. twice daily day 2 Remains in sinus rhythm Continue usual Eliquis twice daily Monitor EKGs, QT intervals DYSPEPSIA Trial of Maalox HEAD TRAUMA FROM SYNCOPE CT head: No acute process Denies any headache or neurologic symptoms COVID EXPOSURE Patient's diagnosed with Covid 19 July 04, 2021 Has recovered since Initial Covid screen and second Covid screen negative Asymptomatic from Covid standpoint ANXIETY Brought on by illness in her family On Zoloft Stable Follow-up with PCP DVT prophylaxis On Eliquis Disposition Anticipate discharge to home with family when medically stable Follow-up with PCP Follow-up with public area attendant next plan of care discussed with patient in detail and at length all questions answered She is understanding, agreeable, comfortable with the plan of care Discharge Plan Discharge Items Reason For Visit: A FIB Follow-up/Referrals: Sonya Sanon DO [Primary Care Provider] - (Date & Time 08/01/2021 11:10 AM Provider Sonya Sanon DO Department Family Medicine [facility] ) Paula Reid CRNP [Nurse Practitioner] - (Date & Time 08/06/2021 2:30 PM Provider LITA Lorenzo Department Cardiology, [facility] ) Medications and DC Order Prescriptions: No Action loratadine [Claritin] 10 mg Tablet 10 mg PO DAILY RF: 0 melatonin 5 mg Tablet,Chewable 5 mg PO HS PRN (Reason: Sleep) RF: 0 Premarin 0.625 mg/gram Cream 0.25 applic Vaginal WK RF: 0 sertraline 25 mg tablet 25 mg PO DAILY RF: 0 metoprolol tartrate 25 mg tablet 25 mg PO BID RF: 0 Eliquis 5 mg tablet 5 mg PO BID RF: 0 Admission Data Admit Date/Time: 07/23/21 11:54 Attending Provider: Shilo So Admit Provider: David Lew Primary Care Provider: Sonya Sanon Other Providers: Diamond Kwon I. ; Alberto Erwin ; David Lew
--- NOTE | 2021-07-25 18:56 | Electrocardiogram Report ---
Test Reason : Blood Pressure : / mmHG Vent. Rate : 055 BPM Atrial Rate : 055 BPM P-R Int : 130 ms QRS Dur : 082 ms QT Int : 464 ms P-R-T Axes : 074 059 011 degrees QTc Int : 443 ms Sinus bradycardia with sinus arrhythmia Possible Left atrial enlargement Borderline ECG When compared with ECG of 24-JUL-2021 09:08, Previous ECG has undetermined rhythm, needs review Confirmed by Freddy Hicks ([id number]) on 07/25/2021 6:56:23 PM Referred By: REFERRED SELF Confirmed By:Jarrod Hicks
[2021-07-26] MEDS ORDERED: SOTALOL HCL 80 MG TAB PO SCH (09:00)
--- NOTE | 2021-07-26 18:19 | Electrocardiogram Report ---
Test Reason : Blood Pressure : / mmHG Vent. Rate : 060 BPM Atrial Rate : 060 BPM P-R Int : 108 ms QRS Dur : 080 ms QT Int : 432 ms P-R-T Axes : 020 058 004 degrees QTc Int : 432 ms Sinus rhythm Otherwise normal ECG When compared with ECG of 25-JUL-2021 05:28, No significant change was found Confirmed by Freddy Hicks ([id number] on 07/26/2021 6:19:04 PM Referred By: REFERRED SELF Confirmed By:Jarrod Hicks
== END 2021-07-25 17:54 | disposition home or self-care (01) | DRG 310 ==
LOC: ED 07:52 → SUATTDRO 11:54 → 2S 11:54